=== PATIENT | female | born 1990 | race Hispanic/Latino ===

== ENCOUNTER 2016-05-16 21:15 | Emergency (ER) | payer OTHER ==
[~2016-05-16] VITALS: Ht 165.1 cm; Wt 50.0 kg
[2016-05-16 21:43] VITALS: BP 121/71; PULSE 97; RESP 20; O2SAT 100
--- NOTE | 2016-05-16 22:04 | ED.REPORT ---
HPI-Head Prob / Injury Date of Service May 16, 2016 ED Provider: Paolo Tesfaye DO Healthy 25-year-old female presents after suffering a seizure related to head injury. Evidently she was rollerblading and fell backwards landing on her buttocks and rolling backward striking left side of her head. She then had a brief loss of consciousness and what sounds like brief seizure activity. She presents now with swelling over the left side of her voodoo and a mild headache. She did not have any chest pain or shortness of breath. She does not have a history of syncopal episodes. She does not have a history of pulmonary emboli She does not have a seizure disorder. She denies having any neck pain. She denies having any back pain. Nursing Notes Stated Complaint: L SIDE HEAD PAIN/SEIZED AROUND 7:50 PM Chief Complaint: Head, Face, Neck Trauma Nursing Notes Reviewed: Yes Allergies: Coded Allergies: No Known Allergies (Unverified , 05/16/16) General Time Seen by Provider: 22:04 Chief Complaint Other (Head injury) Hx Obtained From: Patient Arrived By: Walk-in Onset Occurred: Just prior to arrival Context of Onset: During sports Symptom Duration: Since onset Caused by: Fall while (rollerblading) Location: : Temporal region L Quality: Painful Severity: Current: Moderate Recent Healthcare: No recent doctor visit, No recent hospitalization Similar Sx Previous: No Risk-Head Prob / Injury )( IC Bleed Risk Strat No Age (<1 yr or >60 yrs), No Blood thinners, No Coagulation disorder, No EtOH use, No Prior epidural bleed RF Statements: Risk factors reviewed Nexus C-Spine Criteria No post midline tendernes, Not intoxicated, Normal level or alertness, No focal neuro deficits, No distracting injuries Head CT Imaging Non Contrast CT Indicated For: Post Trauma Seizure WITH Loss of Conciousness Spine Injury Risk Stratif RF Statements: Risk factors reviewed, No risk factors Past Medical History Past Medical History Denies Past Surgical History Reports: Social History Other Social History: Good social support, Ambulatory Status Independent Review of Systems Head pain, left side Neurologic: Reports: Change LOC, Seizure Complete sys rev & neg: except as marked. Physical Exam Initial Vital Signs Vital Signs (First) Date Time Temp Pulse Resp B/P Pulse Ox O2 Delivery O2 Flow Rate FiO2 05/16/16 21:43 36.7 97 20 121/71 100 Room Air Initial VS: Reviewed Respiratory: Breath sounds normal, No respiratory distress Abdomen / GI: No distention Extremities: Vascular intact, Neuro intact Skin: Warm, Dry, No cyanosis Psychiatric: Mood/affect normal, Behavior normal, Normal thought content General/Constitutional: Awake, Alert, Well appearing, Well developed, Well hydrated, Well nourished, Not toxic appearing Head / Eyes: Normocephalic, PERRL Head / Scalp Abnl: Positive: Scalp swelling temporal L (soft-tissue) ENT: Atraumatic, Airway patent, Mucous membranes moist Neck: Atraumatic, Full range of motion, No midline vertebral tend C-spine normal, cleared clinically Neurologic: Oriented X3, Speech NL, No motor deficits Heart Sounds / Murmur: Positive: Systolic murmur present.. (faint injection) Interpretation & Diagnostics Lab Results Interpretation Result Diagram: 05/16/16222905/16/162229 Test 05/16/16 22:30 White Blood Count 6.0th/mm3 (3.8-10.1) Red Blood Count 3.84mil/mm3 (3.90-5.20) Hemoglobin 11.6g/dL (12.0-15.6) Hematocrit 34.0% (35.0-46.0) Mean Corpuscular Volume 88.5fL (81-100) Mean Corpuscular Hemoglobin 30.2pg (27.0-35.0) Mean Corpuscular Hemoglobin Concent 34.1% (32.0-37.0) Red Cell Distribution Width 11.9% (12.3-15.4) Platelet Count 121bil/L (150-400) Neutrophils (%) (Auto) 77.1% (40-74) Lymphocytes (%) (Auto) 15.9% (14-46) Monocytes (%) (Auto) 6.2% (4-12) Eosinophils (%) (Auto) 0.3% (0-5) Basophils (%) (Auto) 0.3% (0-3) Sodium Level 139mEq/L (134-144) Potassium Level 3.8mEq/L (3.5-5.2) Chloride Level 103mEq/L (97-108) Carbon Dioxide Level 22mmol/L (18-29) Blood Urea Nitrogen 12mg/dL (6-20) Creatinine 0.51mg/dL (0.57-1.00) Estimat Glomerular Filtration Rate 209mL/min (>59) Glucose Level 116mg/dL (60-99) Calcium Level 9.3mg/dL (8.5-10.1) Total Bilirubin 0.4mg/dL (0.0-1.2) Aspartate Amino Transf (AST/SGOT) 15U/L (0-50) Alanine Aminotransferase (ALT/SGPT) 11U/L (0-32) Alkaline Phosphatase 31U/L (25-150) Total Protein 7.5g/dL (6.4-8.4) Albumin 4.4g/dL (3.4-5.0) HCG Beta Subunit 0.500mIU/mL Hold Ramos Top Tube Received (Received) CT Head Interpretation CONCLUSION: Normal non-contrast CT scan of the head. Radiologist: Enoch Alvarez M.D. Re-Eval/Medical Decision Med Decision/Clinical Course CT scan brain was normal per radiology. Laboratory work him should mild anemia. She is not . She is treated with Zofran and pain medicine. She felt better. Vitals were stable. Assessment: Head injury and posttraumatic seizure. I do recommend that she follow seizure precautions. No driving or participating in activities that put her or others at risk if she has another seizure. Zofran for any postconcussive nausea. Recommend close outpatient follow-up and consider EEG. Source of Hx: Old records Counseled Regarding: Diagnosis, Lab results, Need for follow-up, When/why to return to ED Discharge & Departure Shift Change Sign-Out Response to Therapy: Improved Primary Impression: Head injury Encounter type: initial encounter Qualified Code: S09.90XA - Unspecified injury of head, initial encounter Additional Impression: Seizure Disposition: Home All VS Reviewed: Yes Condition: Stable Additional Instructions: You brain scan and labs are normal. Set up follow-up with your primary care provider. You should discuss with them a follow-up outpatient EEG. You can also discuss a neurology consult with your primary care provider or follow-up with the referred neurologist. Take Tylenol and Motrin as directed for pain. You can take 1 Zofran every 8 hours as needed for nausea. Do not drive or operate machinery tonight or until seen by her primary care. If you had a seizure than you are risk for another seizure. Do not perform/participate in any activities that put you or others at risk until epilepsy has been ruled out. Referrals: Farida Levin MD (PCP) Silvana Morrison MD Attestation Portions of this note were transcribed by Shan Moss. I, Dr. Tesfaye personally performed the history, physical exam and medical decision-making; I reviewed and confirmed the accuracy of the information in the transcribed note. Signed by : Malika Nava, 05/17/16 and 0100. copies to: Silvana Morrison MD; Farida Levin MD, Todd P DO May 16, 2016 22:04 SHAN MOSS May 16, 2016 22:17
[2016-05-16 22:43] LABS: BASOPHILS % (AUTO) 0.3 % (0-3); EOSINOPHILS % (AUTO) 0.3 % (0-5); MONOCYTES % (AUTO) 6.2 % (4-12); Mean Corpuscular Hemoglobin 30.2 pg (27.0-35.0); Mean Corpuscular Volume 88.5 fL (81-100); NEUTROPHILS % (AUTO) 77.1 % (40-74); Platelet Count 121 bil/L (150-400)
[2016-05-16] MEDS ORDERED: HYDROcodone-APAP 5-325 mg Tablet PO ONE (23:30)
[2016-05-17 00:17] VITALS: BP 98/61; PULSE 89; RESP 18; O2SAT 98
--- NOTE | 2016-05-17 08:10 | DRSVH ---
PROCEDURE: CT BRAIN WITHOUT CONTRAST ([id number]) INDICATIONS: 25 year-old woman with fall and loss of consciousness. TECHNIQUE: Noncontrast 4.5 mm thick angled axial sections acquired from the foramen magnum to the vertex, with c oronal reformats. COMPARISON: [facility], MR, MR BRAIN WO CON, 01/18/2016, 7:02. FINDINGS: Image quality: Excellent. CSF spaces: Basal cisterns are patent. No extra-axial fluid collections. Ventricles are normal in size and shape. Brain: No midline shift. No intracranial masses or hemorrhage. Leiva-white matter interface is norm al. Skull and face: Calvarium and visualized facial bones are intact, without suspicious lesions. Sinuses: Visualized sinuses and mastoids are clear. IMPRESSION: Normal head CT exam. No traumatic injuries identified on CT. No significant discrepancy with the hair worker radiology preliminary report. Dictated by: Tito Lemus M.D. on 05/17/2016 at 8:06 Approved by: Tito Lemus M.D. on 05/17/2016 at 8:09
== END 2016-05-17 00:18 | disposition home or self-care (01) ==
LOC: SED 21:15
DX: S09.90XA Unspecified injury of head, initial encounter (principal); R56.9 Unspecified convulsions; V00.128A Other non-in-line roller-skating accident, initial encounter; Y93.51 Activity, roller skating (inline) and skateboarding; Y92.9 Unspecified place or not applicable; Y99.8 Other external cause status